=== PATIENT | male | born 1940 | race Caucasian/White ===

== ENCOUNTER 2022-07-10 21:48 | Emergency (ER) | payer MEDICARE ==
[2022-07-10 22:17] VITALS: BP 129/74
[2022-07-10 22:31] VITALS: BP 87/62
== END 2022-07-10 23:00 | disposition home or self-care (01) ==
LOC: ED 21:48
DX: F03.B18 Unspecified dementia, moderate, with other behavioral disturbance (principal); Z91.83 Wandering in diseases classified elsewhere